=== PATIENT | female | born 1940 | race Caucasian/White ===

== ENCOUNTER 2019-03-18 12:15 | Inpatient (IN) | payer OTHER ==
[~2019-03-18] VITALS: Ht 160 cm; Wt 60.1 kg
[2019-03-18] MEDS ORDERED: PROPOFOL 1000 MG/ISO-OSM 100 ML IV ONE (12:20)
[2019-03-18] MEDS ORDERED: PROPOFOL 1000 MG/ISO-OSM 100 ML IV PRN (12:30)
[2019-03-18] MEDS ORDERED: SUCCINYLCHOLINE CHLORIDE 20 MG/ML 10 ML VIAL IVP ONE (12:30)
[2019-03-18] MEDS ORDERED: ETOMIDATE 2 MG/ML 10 ML VIAL IVP ONE (12:30)
[2019-03-18] MEDS ORDERED: MIDAZOLAM HCL 5 MG/ML VIAL IVP ONE (12:30)
[2019-03-18] MEDS ORDERED: LevETIRAcetam 1,000 MG in DEXTROSE 5%-WATER 100 ML IV ONE (12:30)
[2019-03-18] MEDS ORDERED: SODIUM CHLORIDE 0.9% 1,000 ML IV ONE ×3 (12:30→14:00)
[2019-03-18] MEDS ORDERED: GLUC1VIA6 IM (12:42)
[2019-03-18] MEDS ORDERED: ASPI81 GT (12:42)
[2019-03-18] MEDS ORDERED: LEVE500T53 GT (12:42)
[2019-03-18] MEDS ORDERED: SERT50TA12 GT (12:42)
[2019-03-18] MEDS ORDERED: VITAD400 GT (12:42)
[2019-03-18] MEDS ORDERED: METO25 GT (12:42)
[2019-03-18] MEDS ORDERED: LISI-661 GT (12:42)
[2019-03-18] MEDS ORDERED: INSNPH SQ (12:42)
[2019-03-18] MEDS ORDERED: INSREG SQ (12:42)
[2019-03-18] MEDS ORDERED: B CO1CAP6 GT (12:42)
[2019-03-18] MEDS ORDERED: FERR-89 GT (12:42)
[2019-03-18 13:01] LABS: ABG A-A DIFF O2 141.4 mmHg (10-20.0); ABG BASE EXCESS 4.4 mmol/L (-2.0-3.0); ABG CARBOXYHEMOGLOBIN 0.3 % (0.0-1.5); ABG HCO3 28.3 mmol/L (22.0-26.0); ABG METHEMOGLOBIN 0.4 % (0.0-1.5); ABG OXYGEN CONTENT 18.7 mL/dL (15.0-23.0); ABG OXYGEN SATURATION 99.6 % (95.0-98.0); ABG OXYHEMOGLOBIN 98.9 % (94.0-100.0); ABG PCO2 41 mmHg (35-45); ABG PH 7.459 (7.35-7.450); ABG TOTAL HEMOGLOBIN 12.4 G/dL (12.0-18.0); PO2, ARTERIAL BG 527.6 mmHg (75.0-83.0); SOURCE, BLOOD GAS ARTERIAL; TEMPERATURE, FAHRENHEIT, BG 100.7 FAHREN (96.0-98.6)
[2019-03-18 13:02] LABS: SITE, BLOOD GAS LFT RADIAL
[2019-03-18 13:03] LABS: O2 DEVICE,BLOOD GAS VENTILATOR (ROOM AIR); PEEP,BG 5 cm H2O; SPONTANEOUS VT, BG 456 ml; VT, ABG 450 ml
[2019-03-18 13:17] LABS: BASOPHILS % (AUTO) 0.3 % (0.0-2.0); EOSINOPHILS % (AUTO) 0.2 % (1.0-6.0); HEMATOCRIT 34.8 % (36-46); HEMOGLOBIN 11.5 g/dL (12.0-16.0); LYMPHOCYTES # (AUTO) 0.8 K/uL (1.0-4.8); LYMPHOCYTES % (AUTO) 11.5 % (22.0-44.0); MEAN CORPUSCULAR HEMOGLOBIN 27.7 pg (26.0-34.0); MEAN CORPUSCULAR HGB CONC 33.1 G/dL (31.0-37.0); MEAN CORPUSCULAR VOLUME 84 fL (80-100); MONOCYTES # (AUTO) 0.4 K/uL (0.1-1.0); MONOCYTES % (AUTO) 5.2 % (2.0-9.0); NEUTROPHILS # (AUTO) 5.9 K/uL (1.8-7.7); NEUTROPHILS % (AUTO) 82.8 % (40.0-70.0); PLATELET COUNT (AUTO) 190 K/uL (150-450); RED BLOOD CELL COUNT(AUTO) 4.15 MIL/uL (4.00-5.20)
[2019-03-18 13:29] LABS: ANION GAP 6 mmol/L (8-16); CALCIUM, TOTAL 8.9 mg/dL (8.8-10.5); CARBON DIOXIDE 28 mmol/L (22-29); CHLORIDE 102 mmol/L (98-107); GLUCOSE,RANDOM 180 mg/dL (70-110); POTASSIUM 3.9 mmol/L (3.5-5.1); PROTHROMBIN TIME 10.3 SEC (9.4-11.6); SODIUM SERUM 136 mmol/L (136-145); UREA NITROGEN, BLOOD 27 mg/dL (7-18)
[2019-03-18 13:32] LABS: GLOMERULAR FILTR. RATE CALC > 60 mL/min (>60)
[2019-03-18 13:45] LABS: LACTIC ACID 1.6 mmol/L (0.4-2.0)
[2019-03-18] MEDS ORDERED: MIDAZOLAM HCL 100 MG in DEXTROSE 5%-WATER 180 ML IV PRN (13:45)
[2019-03-18 13:53] LABS: ALANINE AMINOTRANSFERASE 25 U/L (12-78); ALBUMIN 3.2 g/dL (3.4-5.0); ALKALINE PHOSPHATASE 78 U/L (46-116); ASPARTATE AMINOTRANSFERASE 31 U/L (15-37); BILIRUBIN,TOTAL 0.5 mg/dL (0.1-1.0); CREATINE KINASE, TOTAL ONLY 92 U/L (26-192); TOTAL PROTEIN, SERUM 6.9 g/dL (6.4-8.2)
[2019-03-18] MEDS ORDERED: ACETAMINOPHEN 325 MG TABLET PO PRN (14:00)
[2019-03-18] MEDS ORDERED: ONDANSETRON HCL 4 MG/2 ML VIAL IVP PRN ×2 (14:00→15:30)
[2019-03-18] MEDS ORDERED: FERSL GT (15:25)
[2019-03-18] MEDS ORDERED: 0.9% SODIUM CHLORIDE 10 ML SYRINGE IVP PRN (15:30)
[2019-03-18] MEDS ORDERED: INSULIN LISPRO 100 UNITS/ML SQ PRN (15:30)
[2019-03-18] MEDS ORDERED: ALBUTEROL SULFATE 2.5 MG/0.5 ML NEB SOLUTION NEB PRN (15:30)
[2019-03-18] MEDS ORDERED: BISACODYL 10 MG RECTAL RECTAL SUPPOSITORY PR PRN (15:30)
[2019-03-18] MEDS ORDERED: DEXTROSE 50%-WATER 25 GM/50 ML SYRINGE IVP PRN (15:30)
[2019-03-18] MEDS ORDERED: IPRATROPIUM BROMIDE 0.5 MG/2.5 ML NEB SOLUTION NEB PRN (15:30)
[2019-03-18] MEDS ORDERED: LORazepam 2 MG/ML VIAL IVP PRN (15:45)
[2019-03-18] MEDS ORDERED: SUCCINYLCHOLINE CHLORIDE 20 MG/ML 10 ML VIAL ONE (15:52)
[2019-03-18] MEDS ORDERED: ETOMIDATE 2 MG/ML 10 ML VIAL ONE (15:52)
[2019-03-18 16:22] LABS: GLUCOSE,POINT OF CARE 143 MG/DL (70-110)
[2019-03-18] MEDS: ASPIRIN 81 MG CHEWABLE TABLET GT SCH (16:27)
[2019-03-18] MEDS: SODIUM CHLORIDE 0.9% 1,000 ML IV SCH (17:10)
[2019-03-18] MEDS: PIPERACILLIN/TAZO 3.375 GM/D5W 50 ML IV SCH (19:55)
[2019-03-18 20:00] VITALS: BP 139/57
[2019-03-18] MEDS: ACETAMINOPHEN 325 MG TABLET PO PRN (20:08)
[2019-03-18] MEDS: FERROUS SULFATE 300 MG/5 ML LIQUID UDCUP GT SCH (20:57)
[2019-03-18] MEDS: HEPARIN SODIUM,PORCINE 5,000 UNITS/ML VIAL SQ SCH (20:59)
[2019-03-18 22:00] VITALS: BP 144/50
[2019-03-18 23:52] LABS: APPEARANCE,URINE CLOUDY (CLEAR); BILIRUBIN,URINE NEGATIVE (NEGATIVE); GLUCOSE, URINE (UA) NEGATIVE (NEGATIVE); KETONES,URINE NEGATIVE (NEGATIVE); LEUKOCYTE ESTERASE ,URINE SMALL (NEGATIVE); NITRATE,URINE NEGATIVE (NEGATIVE); OCCULT BLOOD,URINE NEGATIVE (NEGATIVE); PROTEIN,URINE POS 1+ (NEGATIVE)
[2019-03-19] VITALS: BP 114/54
[2019-03-19] MEDS: PIPERACILLIN/TAZO 3.375 GM/D5W 50 ML IV SCH ×4 (00:07→18:08)
[2019-03-19 00:13] LABS: BACTERIA,URINE Few /HPF (None Seen); RBC,URINE 0-2 /HPF (0-2); SQUAMOUS EPITHELIAL CELL,UR Few /LPF (None Seen)
[2019-03-19] MEDS: ACETAMINOPHEN 325 MG TABLET PO PRN ×2 (01:36→05:56)
[2019-03-19] MEDS: LevETIRAcetam 1,000 MG in DEXTROSE 5%-WATER 100 ML IV SCH ×2 (02:06→14:28)
[2019-03-19 03:25] LABS: GLUCOSE,POINT OF CARE 118 MG/DL (70-110)
[2019-03-19 03:25] LABS: GLUCOSE,POINT OF CARE 116 MG/DL (70-110)
[2019-03-19 04:00] VITALS: BP 102/46
[2019-03-19 05:30] LABS: BASOPHILS % (AUTO) 0.3 % (0.0-2.0); EOSINOPHILS % (AUTO) 0.2 % (1.0-6.0); HEMATOCRIT 35.2 % (36-46); HEMOGLOBIN 11.4 g/dL (12.0-16.0); LYMPHOCYTES # (AUTO) 0.5 K/uL (1.0-4.8); LYMPHOCYTES % (AUTO) 3.6 % (22.0-44.0); MEAN CORPUSCULAR HEMOGLOBIN 27.3 pg (26.0-34.0); MEAN CORPUSCULAR HGB CONC 32.4 G/dL (31.0-37.0); MEAN CORPUSCULAR VOLUME 84 fL (80-100); MONOCYTES # (AUTO) 1.1 K/uL (0.1-1.0); MONOCYTES % (AUTO) 7.9 % (2.0-9.0); NEUTROPHILS # (AUTO) 12.6 K/uL (1.8-7.7); PLATELET COUNT (AUTO) 130 K/uL (150-450); RED BLOOD CELL COUNT(AUTO) 4.18 MIL/uL (4.00-5.20); RED CELL DISTRIBUTION WIDTH 21.2 % (11.5-14.5)
[2019-03-19] MEDS: SODIUM CHLORIDE 0.9% 1,000 ML IV SCH (05:56)
[2019-03-19] MEDS ORDERED: PNEUMOCOCCAL VACCINE POLYVALENT 0.5 ML VIAL [PPSV23] IM ONE (06:00)
[2019-03-19 06:04] LABS: ALANINE AMINOTRANSFERASE 27 U/L (12-78); ALKALINE PHOSPHATASE 68 U/L (46-116); ANION GAP 8 mmol/L (8-16); ASPARTATE AMINOTRANSFERASE 33 U/L (15-37); BILIRUBIN,TOTAL 0.8 mg/dL (0.1-1.0); CALCIUM, TOTAL 8.9 mg/dL (8.8-10.5); CARBON DIOXIDE 27 mmol/L (22-29); CHLORIDE 101 mmol/L (98-107); CREATININE 0.88 mg/dL (0.60-1.30); FREE T4 (FREE THYROXINE) 1.51 ng/dL (0.76-1.46); GLUCOSE,RANDOM 146 mg/dL (70-110); SODIUM SERUM 136 mmol/L (136-145); THYROID STIMULATING HORMONE 0.27 uIU/mL (0.36-3.74); TOTAL PROTEIN, SERUM 6.8 g/dL (6.4-8.2); UREA NITROGEN, BLOOD 24 mg/dL (7-18)
[2019-03-19 06:13] LABS: GLOMERULAR FILTR. RATE CALC > 60 mL/min (>60); POTASSIUM 2.9 mmol/L (3.5-5.1)
[2019-03-19] MEDS ORDERED: POTASSIUM CHLORIDE 10% 40 MEQ/30 ML LIQUID UDCUP GT PRN ×2 (06:30)
[2019-03-19] MEDS ORDERED: POTASSIUM CHL 10 MEQ/WATER 50 ML IV PRN (06:30)
[2019-03-19] MEDS ORDERED: POTASSIUM CHLORIDE 20 MEQ ER TABLET PO PRN (06:30)
[2019-03-19] MEDS: POTASSIUM CHL 10 MEQ/WATER 50 ML IV PRN ×4 (06:53→10:13)
[2019-03-19 07:05] LABS: GLUCOSE,POINT OF CARE 126 MG/DL (70-110)
[2019-03-19 08:00] VITALS: BP 152/68
[2019-03-19] MEDS ORDERED: PANTOPRAZOLE SODIUM 40 MG/VIAL IVP SCH (09:00)
[2019-03-19] MEDS ORDERED: VITAMIN B COMP/VIT C/FOLIC ACID CAPSULE GT SCH (09:00)
[2019-03-19] MEDS: ASPIRIN 81 MG CHEWABLE TABLET GT SCH (09:00)
[2019-03-19] MEDS ORDERED: LISINOPRIL 10 MG TABLET GT SCH (09:00)
[2019-03-19] MEDS ORDERED: SERTRALINE HCL 50 MG TABLET GT SCH (09:00)
[2019-03-19] MEDS ORDERED: CHOLECALCIFEROL (VIT D3) 400 UNITS TABLET GT SCH (09:00)
[2019-03-19] MEDS: FERROUS SULFATE 300 MG/5 ML LIQUID UDCUP GT SCH (09:00)
[2019-03-19] MEDS: HEPARIN SODIUM,PORCINE 5,000 UNITS/ML VIAL SQ SCH (09:01)
[2019-03-19 12:00] VITALS: BP 156/72
[2019-03-19 16:00] VITALS: BP 141/76
[2019-03-19 19:55] LABS: GLUCOSE,POINT OF CARE 146 MG/DL (70-110)
[2019-03-19 19:55] LABS: GLUCOSE,POINT OF CARE 156 MG/DL (70-110)
== END 2019-03-19 19:30 | disposition short-term general hospital (02) | DRG 100 ==
LOC: EMS 12:16 → ICU 16:20
PROVIDERS: ADMIT Internal Medicine; ATTEND Internal Medicine
PROC: 5A1945Z Respiratory Ventilation, 24-96 Consecutive Hours (ICD-10-PCS; 2019-03-18)
PROC: 0BH17EZ Insertion of Endotracheal Airway into Trachea, Via Natural or Artificial Opening (ICD-10-PCS; 2019-03-18)
PROC: 4A00X4Z Measurement of Central Nervous Electrical Activity, External Approach (ICD-10-PCS; principal; 2019-03-19)
DX: G40.901 Epilepsy, unspecified, not intractable, with status epilepticus (principal); J69.0 Pneumonitis due to inhalation of food and vomit; J96.00 Acute respiratory failure, unspecified whether with hypoxia or hypercapnia; I24.8 Other forms of acute ischemic heart disease; D50.9 Iron deficiency anemia, unspecified; E11.9 Type 2 diabetes mellitus without complications; I10 Essential (primary) hypertension; Z86.73 Personal history of transient ischemic attack (TIA), and cerebral infarction without residual deficits; Z79.899 Other long term (current) drug therapy; Z88.8 Allergy status to other drugs, medicaments and biological substances; Z79.82 Long term (current) use of aspirin; Z79.4 Long term (current) use of insulin
CPT/HCPCS: 31500; 36600; 51702; 70450; 70544; 70547; 70551; 82805; 83605; 84132; 84145; 84439; 84443; 87040; 87070; 87081; 87086; 87205; 93005; 93306; 94002; 95816; 99291; C9113; G0378; J0330; J0712; J1644; J2250; J2543; J2704; J3480; J3490; J7030; J7060